=== PATIENT | female | born 1970 | race Caucasian/White ===

== ENCOUNTER 2022-06-28 08:39 | Emergency (ER) | payer OTHER ==
[~2022-06-28] VITALS: Ht 167.6 cm; Wt 88.0 kg
[2022-06-28 08:43] VITALS: BP 133/72
[2022-06-28 09:24] LABS: BASOPHILS % 0.7 % (0.0-2.0); HEMATOCRIT. 40.2 % (36.0-48.0); HEMOGLOBIN. 13.9 g/dL (12.0-16.0); LYMPHOCYTES % 34.1 % (20.0-50.0); MEAN CORPUSCULAR HEMOGLOBIN 28.1 pg (28.0-32.0); MEAN CORPUSCULAR VOLUME 81.5 fL (81.0-99.0); MEAN PLATELET VOLUME 7.7 fl (7.4-10.4); MONOCYTES % 6.8 % (2.0-8.0); NEUTROPHILS % 55.4 % (40.0-76.0); PLATELET 289 x1000/uL (130-400); RED BLOOD CELL COUNT 4.94 mill/uL (4.2-5.4); RED CELL DISTRIBUTION WIDTH 13.6 % (11.6-14.6)
[2022-06-28 09:32] LABS: CHLORIDE 108 mEq/L (98-107)
[2022-06-28 09:39] LABS: ETHANOL BLOOD < 10 mg/dL
[2022-06-28] MEDS ORDERED: VALA100044 PO (10:34)
[2022-06-28] MEDS ORDERED: P50 PO (10:34)
[2022-06-28] MEDS ORDERED: POLY15DR31 RIGHTEYE (10:34)
== END 2022-06-28 11:04 | disposition home or self-care (01) ==
LOC: ER 08:39
DX: G51.0 Bell's palsy (principal)
CPT/HCPCS: 36415; 71045; 80053; 80320; 85025; 99285; G0480